=== PATIENT | female | born 2005 | race Caucasian/White ===

== ENCOUNTER 2025-01-18 00:22 | Inpatient (IN) ==
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
--- OUTSIDE RECORDS SUMMARY | 2025-01-18 00:28 | External Medical Summary | Summary of Care ---
Author Name Unknown Organization [facility] Address [address] [place] [address] Phone [phone] Care Team Providers Care Heat Curer Name Role Phone Salazar Keating MD Primary Care Provider + Reason for Visit * Reason Onset Date Comments No Show 11/29/2024 [facility] No Show Auto mation Encounter Details Date Type Department Care Team (Late st Contact Info) Description 11/29/2024 Telephone Family Practice [facility] [address] [place] [address] Salazar Keating MD [address] [place] [id number] No Show ([facility] No Show Automation) Allergies Active Allergy Reactions Criticality Noted Date Comments Cephalexin Hives 01/06/2013 Lamotrigine 06/21/2022 Rash Penicillins 08/03/2018 documented as of this encounter (statuses as of 11/29/2024) Medications traZODone HCl 50 MG Oral Tablet (Desyrel) Take 1 Tablet by mouth at bedtime. 30 Tablet 1 3 Active Propranolol HCl 10 MG Oral Tablet (Inderal) Take 1 Tablet by mouth 3 times a day as needed for Anxiety. 90 Tablet 1 4 Active valACYclovir HCl 500 MG Oral Tablet (Valtrex) 1 tab twice daily for 3 days -start at beginning of herpes outbreak. Stop after 6 pills (extra pills are for future outbreaks) 18 Tablet 4 Active QUEtiapine Fumarate 50 MG Oral Tablet (SEROquel) Take 1 Tablet by mouth at bedtime. 30 Tablet 2 4 Active Drospirenone-Et hinyl Estradiol 3-0.02 MG Oral Tablet (ANGEL)Indication s:PCOS (polycystic ovarian syndrome) Take 1 Tablet by mouth in the morning. 90 Tablet 3 4 Active metFORMIN HCl 500 MG Oral Tablet (Glucophage)Ind ications:PCOS (polycystic ovarian syndrome) Take 1 Tablet by mouth 2 times a day with morning and evening meals. 60 Tablet 1 4 Active documented as of this encounter (statuses as of 11/29/2024) Active Problems Problem Noted Date Diagnosed Date [...] as of this encounter (statuses as of 11/29/2024) Resolved Problems Problem Noted Date Diagnosed Date Resolved Date Food insecurity 02/13/2022 12/20/2023 Overview: Per [facility] Protocol Mood disorder 08/19/2021 07/16/2022 Fracture of ulna, closed 08/17/2008 Lymphadenitis, unspecified, except mesenteric 04/23/20 08 08/19/2021 documented as of this encounter (statuses as of 11/29/2024) Immunizations Name Administration Dates Next Due Covid-19 Ad26, Single Dose (Allison/J&J) 07/13/2021 DTaP Dipth/Tet/Acell Pertussis (Infanrix), Peds 06/04/2008,10/27/2004,2003,08/17,2003 HIB PRP-T, 4 Dose, PF, IM (H iberix, ActHib) 10/27/2004,2003,2003 HPV Vaccine, 9-Valent 06/21/2022 Hepatitis A, Ped/Adol., 18 y ear and below, 2-Dose 04/22/2018,06/03/2013 Hepatitis B, 0-19 yrs 02/23/2009,2003,05/2003 IPV - Polio Virus Vaccine (Inact) 2007,2003,2003,06/15 [...] No 12/04/2023 Does the household have a [facility] source of income? 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 If you haven't already rescheduled, you have a couple of options: Reschedule in [employer]/scheduling Call us at [phone] Can't make a future appointment? Cancel and let someone else have your spot! It's easy to do via [employer] or by calling us. Thanks for trusting [facility] with your care. We hope to see you back in our office soon. Sincerely, SALAZAR DANIEL NANCY documented in this encounter Plan of Treatment Health Maintenance Due Date Last Done Comments [...] (2 - 2023-2 5 season) 2024 07/13/2021 Depression Monitoring 12/04/2024 12/04/2023 Yearly Wellness Visit 12/04/2024 12/04/2023 , 01/27/2020, 04/22/2018, Additional history exists DTap/Tdap Vaccines (7 - Td o r Tdap) 01/25/2026 01/26/2016, 06/04/2008, 10/27/2004, Additional history exists Hepatitis B Vaccine Completed 02/23/2009, 2003, 2003 MENINGOCOCCAL (MENACTRA/MENVEO) Completed , 01/26/2016 documented as of this encounter Medical Devices Not on filedocumented as of this encounter Care Teams Heat Curer Relationship Specialty Start Date End Date Salazar Keating MD [address] [place] [address] PCP - General Family Medicine 08/03/21 documented as of this encounter
--- NOTE | 2025-01-18 01:55 | Emergency Department Note ---
Impression & Plan Breast abscess Admit to the [facility] ED Provider Note NAME: ROSEANNA STARK AGE: 19 SEX: Female INFORMANT: Patient ED PROVIDER(S): Yessy Perez DO CHIEF COMPLAINT: right breast pain and swelling PLAN: Disposition: Admit to the [facility] MEDICAL DECISION MAKING: this is a 19-year-old female patient who presents to the emergency department with a 1 week history of right breast pain and swelling. The patient saw her PCP approximately 4 days ago and was diagnosed with an infection in the right breast. She was started on Bactrim DS but has seen no improvement in her symptoms. In fact, the symptoms are worsening. There is such significant edema that she had to remove her nipple piercing as the jewelry had become embedded into the breast. The pain is now spreading into her neck and back. The patient has an obvious right-sided breast abscess. Blood cultures were obtained and the patient was started on IV vancomycin. Patient's pain was controlled with IV Toradol and IV acetaminophen. She preferred to avoid IV opioids. A septic protocol was performed. Laboratory studies revealed a white blood cell count of 18.5. Procalcitonin and lactate were normal. Urinalysis was unremarkable. Renal function and LFTs were normal. Glucose was normal. Patient went for CT scan of the chest to determine the extent of this abscess. It seems to be contained to the right breast. I discussed the case with the [facility] and he will evaluate for further inpatient care and consult surgery. Care/management discussed with: driver manager and [facility] Triage Nursing notes: reviewed and agree with them. Vital Signs: reviewed and unremarkable Differential Diagnosis: breast abscess, sepsis, cellulitis Diagnostics, independently interpreted by me: Twelve-lead EKG: Normal sinus rhythm at a rate of [address] segment elevation or signs of ischemia. There is no ectopy. QTc was 399 ms. ekg monitor: Normal sinus rhythm at a rate of 94 Imaging studies: CT scan of the chest: As per Imbro HPI: 19 year old Female arrives for evaluation of painful red breast. 1 week history of right breast pain and swelling. The patient saw her PCP approximately 4 days ago and was diagnosed with an infection in the right breast. She was started on Bactrim DS but has seen no improvement in her symptoms. In fact, the symptoms are worsening. There is such significant edema that she had to remove her nipple piercing as the jewelry had become embedded into the breast. PAST MEDICAL HISTORY: none, SOCIAL HISTORY: Patient denied any drug or alcohol use. HOME MEDICATIONS: see list ALLERGIES: See list VITALS: See Below PHYSICAL EXAMINATION: HEENT: Head - normocephalic and atraumatic. Pupils are equal, round, and reactive to light. Extraocular eye muscles are intact, and sclera are anicteric. Nose - moist nasal mucosa without discharge. Mouth - moist buccal mucosa. Oropharynx is nonerythematous and there is no tonsillar exudate or edema noted. Neck: Supple; no Thyromegaly or cervical lymphadenopathy. There was no nuchal rigidity chest wall: The patient has significant enlargement to the right breast with erythema and edema and significant fluctuance. There is obvious abscess formation to the right inferior breast. There is cellulitic changes to the upper portion of the breast. There does not appear to be lymphangitic spread noted. There is no pain in the right axilla. Heart: Regular rate and rhythm. There is a normal S1 and S2 with no murmurs, clicks, or gallops appreciated. Lungs: Clear to auscultation bilaterally with no wheezes, rales, or rhonchi. Abdomen: Soft, completely nontender, nondistended, with good bowel sounds. There are no palpable pulsatile masses or hepatosplenomegaly. There is no guarding, rigidity, or rebound noted. Extremities: No evidence of cyanosis, clubbing, or edema. There are easily palpable peripheral pulses. Skin: warm and dry with good turgor and no rashes. Emergency Department treatment: ekg monitor, IV acetaminophen, IV Toradol, IV Zofran, IV vancomycin Emergency Department course: The patient was evaluated in room C-5. A complete history and physical was performed. A septic protocol was performed. An IV lock was initiated and labs were drawn as above. The patient was medicated with IV Toradol for pain. She was given IV Zofran for nausea. She did not get much relief. She went on to receive IV acetaminophen. This gave her some relief of her discomfort. She was medicated with IV vancomycin for obvious right-sided breast abscess. She went for CT scan of her chest to determine the extent of the abscess. I discussed the case with the [facility] hospitalist who will admit the patient to the hospital and consult surgery. Past Med/Surg History Problem List (Updated 01/19/25 @ 07:23 by Yessy Perez DO) Breast abscess (Acute) Abscess of right breast Obesity Vulvar ulcer History of PCOS Oligomenorrhea Depression with anxiety Wrist contusion (Acute) Medical History Hyperhidrosis Monteggia fracture, closed Concussion Surgical History History of surgery on arm H/O wisdom tooth extraction No pertinent past surgical history Family History Grandmother (Maternal) Ovarian cancer Great Grandmother, in 20s due to either cervical or ovarian Other Cervical cancer No pertinent family history in first degree relatives Denies family history of Colorectal cancer Social History Smoking Status: Current every day smoker Tobacco Type: E-cigarettes / Vaping Cigarettes Per Day: 3 times per day; Second Hand Exposure: Yes; Do You Dip or Chew Tobacco: No; Hx Alcohol Use: No Hx Substance Use: Yes Last Used Substance: Unknown Preferred Language: Ukrainian Communication Ability: Effective Hurricane Tracker Required: No Beliefs That Will Affect Care: None Current Living Situation: Spouse Current Living Situation Comment: Boyfriend Feels Safe at Home: Yes Assistive Devices: None Allergies Allergies Allergy/AdvReac Type Severity Reaction Status Date / Time cephalexin Allergy Unknown Unknown Verified 01/18/25 04:49 Penicillins Allergy Unknown POSSIBLE Verified 01/18/25 04:49 ALLERGY?? lamotrigine [From Lamictal] Allergy Rash Verified 01/18/25 04:49 Home Meds Home Medications Medication Instructions Recorded Confirmed valacyclovir 500 mg tablet 500 mg PO DIRECTED PRN (Drug) 04/09/24 01/18/25 (Valtrex) Ingestion Results & Data (ED) Vital Signs Vital Signs - 24 hr 01/18/25 00:31 01/18/25 01:12 Temperature 36.7 C Temperature Source Oral Pulse Rate 98 H 98 H Respiratory Rate 20 Blood Pressure 133/85 Blood Pressure Mean 101 Pulse Oximetry 100 Oxygen Delivery Method Room Air Sepsis Recent Fever Within 48 Hours No Sepsis New/Unexplained Change in Mental Status No Sepsis Action Taken by Nursing No Action Required Laboratory Data 01/19/25 05:58 01/19/25 05:58 Lab Results 01/18/25 01/18/25 01/18/25 Range/Units 02:02 02:14 02:16 WBC 18.54 H (4.8-10.8) K/ul RBC 4.46 (4.20-5.40) M/uL Hgb 12.9 (12.0-16.0) g/dl POC Hgb 13.3 (12.0-16.0) g/dl Hct 38.8 (37.0-47.0) % POC Hct 39 (37-47) % MCV 87.0 (80.0-100.0) fL MCH 28.9 (25.0-34.0) pg MCHC 33.2 (32.0-36.0) g/dL RDW Std Deviation 37.6 (36.4-46.3) fL RDW Coeff of Obey 11.7 (11.5-14.5) % Plt Count 377 (130-400) K/uL MPV 9.1 L (9.4-12.4) fL Immature Gran % (Auto) 0.4 % Neut % (Auto) 75.1 % Lymph % (Auto) 16.1 % Glascock % (Auto) 8.1 % Eos % (Auto) 0.1 % Baso % (Auto) 0.2 % Neut # (Auto) 13.92 H (1.40-6.50) K/uL Lymph # (Auto) 2.99 (1.20-3.40) K/uL Glascock # (Auto) 1.50 H (0.11-0.59) K/uL Eos # (Auto) 0.01 (0.00-0.50) K/uL Baso # (Auto) 0.04 (0.00-0.20) K/uL Immature Gran # (Auto) 0.08 (0.01-0.20) K/uL POC Sodium 138 (135-144) mmol/L Sodium 139 (136-145) mmol/L POC Potassium 3.9 (3.3-5.0) mmol/L Potassium 3.9 (3.5-5.1) mmol/L POC Chloride 100 L (101-112) mmol/L Chloride 102 (98-107) mmol/L Carbon Dioxide 31 (21-32) mmol/L POC Total CO2 27 (24-31) mmol/L Anion Gap 6 (3-11) POC Anion Gap 17.0 (16-25) mmol/L POC BUN 10 (7-18) mg/dl BUN 11 (6-23) mg/dl Creatinine 0.80 (0.6-1.2) mg/dl POC Creatinine 0.9 (0.6-1.3) mg/dl Est Cr Clr Drug Dosing 100.1 ml/min eGFR 107.44 BUN/Creatinine Ratio 13.8 (10-20) Glucose 87 (70-99(Fasting)) mg/dl POC Glucose (other) 87 (70-99) mg/dl Lactate 1.3 (0.4-2.0) mmol/L Calcium 9.8 (8.6-10.3) mg/dl POC Ioniz Calcium Jose 1.24 (1.12-1.32) mmol/l Magnesium 2.0 (1.7-2.4) mg/dl Total Bilirubin 0.3 (0.2-1.0) mg/dl Direct Bilirubin 0.1 (0-0.2) mg/dl AST 16 (13-39) U/L ALT 20 (7-52) U/L Alkaline Phosphatase 96 (34-104) U/L Troponin I High Sens < 2.3 (0-14) pg/ml Total Protein 7.5 (6.0-8.3) gm/dl Albumin 4.1 (3.4-5.0) gm/dl Procalcitonin < 0.02 (0-0.5) ng/ml Urine Color Yellow Urine Appearance Cloudy A (Clear) Urine pH 7.5 (4.5-7.5) Ur Specific Robbins 1.016 (1.000-1.030) Urine Protein Negative (Negative) Urine Glucose (UA) Negative (Negative) Urine Ketones Negative (Negative) Urine Blood Negative (Negative) Urine Nitrite Negative (Negative) Urine Bilirubin Negative (Negative) Urine Urobilinogen Negative (Negative) Ur Leukocyte Esterase Negative (Negative) Urine WBC (Auto) 0-5 (0-5) /hpf Urine RBC (Auto) 0-2 (0-2) /hpf U Hyaline Cast (Auto) 0-2 (0-2) /lpf U Epithel Cells (Auto) 0-2 (0-2) /hpf Urine Bacteria (Auto) None Seen (None Seen) Urine Test Negative (Negative) Administered Medications Acetaminophen (Acetaminophen 325 Mg Tab) 650 mg PO Q4H PRN PRN Reason: Mild Pain (Scale 1, 2, 3) Stop: 02/17/25 17:05 Last Admin: 01/19/25 03:01 Dose: 650 mg Documented By: Admin: 01/18/25 22:20 Dose: 650 mg Documented By: Admin: 01/18/25 18:35 Dose: 650 mg Documented By: ANDREA Ertapenem (Invanz 1000mg) 1,000 mg in 10 mls @ 2 mls/min IV Q24H BETHANY Stop: 01/25/25 05:59 Last Admin: 01/19/25 06:19 Dose: 2 mls/min Documented By: Admin: 01/18/25 06:35 Dose: 2 mls/min Documented By: FOX Vancomycin HCl (Vancomycin Hcl) 1,000 mg in 270 mls @ 200 mls/hr IV Q8H BETHANY Stop: 01/25/25 10:59 Last Infusion: 01/19/25 04:42 Dose: Infused Documented By: Admin: 01/19/25 02:58 Dose: 200 mls/hr Documented By: Infusion: 01/18/25 20:02 Dose: Infused Documented By: Admin: 01/18/25 18:31 Dose: 200 mls/hr Documented By: Infusion: 01/18/25 12:30 Dose: Infused Documented By: Admin: 01/18/25 10:50 Dose: 200 mls/hr Documented By: DMITRI Ketorolac Tromethamine (Ketorolac Tromethamine 15 Mg/Ml Vial) 15 mg IV Q6H PRN PRN Reason: Pain Stop: 01/23/25 06:52 Last Admin: 01/18/25 22:20 Dose: 15 mg Documented By: Admin: 01/18/25 10:12 Dose: 15 mg Documented By: DMITRI Discontinued Medications Fentanyl Citrate (Fentanyl Citrate Pf 100 Mcg/2 Ml Vial) 25 mcg IV Q5M PRN PRN Reason: PACU Use Only-Pain Stop: 01/18/25 19:28 Last Admin: 01/18/25 16:18 Dose: 25 mcg Documented By: Admin: 01/18/25 16:13 Dose: 25 mcg Documented By: SERENA Acetaminophen (Ofirmev) 1,000 mg in 100 mls @ 400 mls/hr IV NOW STA Stop: 01/18/25 04:07 Last Infusion: 01/18/25 04:47 Dose: Infused Documented By: Admin: 01/18/25 04:24 Dose: 400 mls/hr Documented By: FOX Vancomycin HCl 1,250 mg/ (Sodium Chloride) 525 mls @ 200 mls/hr IV NOW ONE Stop: 01/18/25 06:31 Last Infusion: 01/18/25 08:00 Dose: Infused Documented By: Admin: 01/18/25 05:15 Dose: 200 mls/hr Documented By: FOX Sodium Chloride (Nss) 1,000 mls @ 125 mls/hr IV .Q8H BETHANY Stop: 01/19/25 06:52 Last Admin: 01/19/25 00:59 Dose: 125 mls/hr Documented By: Infusion: 01/19/25 00:59 Dose: Infused Documented By: Admin: 01/18/25 17:17 Dose: 125 mls/hr Documented By: Infusion: 01/18/25 15:15 Dose: Infused Documented By: Admin: 01/18/25 07:15 Dose: 125 mls/hr Documented By: DMITRI Ioversol (Optiray 320 100ml) 93 ml IV ONCE ONE Stop: 01/18/25 02:56 Last Admin: 01/18/25 02:56 Dose: 93 ml Documented By: CHEYANNE Ketorolac Tromethamine (Ketorolac Tromethamine 15 Mg/Ml Vial) 15 mg IV NOW STA Stop: 01/18/25 01:50 Last Admin: 01/18/25 02:12 Dose: 15 mg Documented By: REMBERTO Lidocaine/Epinephrine (Lidocaine 1%/Epinephrine 1:100,000 50 Ml Vial) Confirm Administered Dose 1 ml .ROUTE .STK-MED ONE Stop: 01/18/25 14:41 Last Admin: 01/18/25 17:06 Dose: Not Given Documented By: ANDREA Ondansetron HCl (Ondansetron Inj 2 Mg/Ml 2 Ml Vial) 4 mg IV NOW STA Stop: 01/18/25 01:50 Last Admin: 01/18/25 02:11 Dose: 4 mg Documented By: LAF Discharge Plan Visit Data Chief Complaint: Breast Pain/Problems Stated Complaint: INFECTION IIN RT BREAST ED Provider: Yessy Perez Discharge Problem: Breast abscess Discharge Instructions Interventions: ED Discharge Assessment Last Done: 01/18/25 06:54
[2025-01-18] MEDS: ONDANSETRON INJ 2 MG/ML 2 ML VIAL IV STA (02:11)
[2025-01-18] MEDS: KETOROLAC TROMETHAMINE 15 MG/ML VIAL IV STA (02:12)
[2025-01-18 02:28] LABS: Basophils # (auto) 0.04 K/uL (0.00-0.20); Basophils % (auto) 0.2 %; Eosinophils # (auto) 0.01 K/uL (0.00-0.50); Eosinophils % (auto) 0.1 %; Hematocrit (blood only) 38.8 % (37.0-47.0); Hemoglobin 12.9 g/dl (12.0-16.0); Immature Granulocytes # (auto) 0.08 K/uL (0.01-0.20); Immature Granulocytes % (auto) 0.4 %; Lymphocytes # (auto) 2.99 K/uL (1.20-3.40); Lymphocytes % (auto) 16.1 %; Mean Corpuscular Hemoglobin 28.9 pg (25.0-34.0); Mean Corpuscular Hgb Conc 33.2 g/dL (32.0-36.0); Mean Platelet Volume 9.1 fL (9.4-12.4); Monocytes % (auto) 8.1 %; Neutrophils # (auto) 13.92 K/uL (1.40-6.50); Neutrophils % (auto) 75.1 %; Platelet Count 377 K/uL (130-400); RDW Coefficient of Variation 11.7 % (11.5-14.5); RDW Standard Deviation 37.6 fL (36.4-46.3); Red Blood Count 4.46 M/uL (4.20-5.40); White Blood Count 18.54 K/ul (4.8-10.8)
[2025-01-18 02:40] LABS: Alanine Aminotransferase 20 U/L (7-52); Albumin Level 4.1 gm/dl (3.4-5.0); Alkaline Phosphatase 96 U/L (34-104); Anion Gap 6 (3-11); Aspartate Aminotransferase 16 U/L (13-39); BUN Creatinine Ratio 13.8 (10-20); Bilirubin Direct 0.1 mg/dl (0-0.2); Bilirubin,Total 0.3 mg/dl (0.2-1.0); Blood Urea Nitrogen 11 mg/dl (6-23); Calcium 9.8 mg/dl (8.6-10.3); Carbon Dioxide 31 mmol/L (21-32); Chloride 102 mmol/L (98-107); Creatinine Clr Calc Pharmacy 100.1 ml/min; Glucose 87 mg/dl (70-99(Fasting)); Potassium 3.9 mmol/L (3.5-5.1); Sodium 139 mmol/L (136-145); Total Protein 7.5 gm/dl (6.0-8.3)
[2025-01-18 02:46] LABS: Appearance Urine Cloudy (Clear); Bacteria Urine Automated None Seen (None Seen); Bilirubin Urine Negative (Negative); Blood Urine Negative (Negative); Cast Urine Automated 0-2 /lpf (0-2); Color Urine Yellow; Epithelial Cell Urine Auto 0-2 /hpf (0-2); Glucose Urine UA Negative (Negative); Ketones Urine Negative (Negative); Leukocyte Esterase Urine Negative (Negative); Nitrite Urine Negative (Negative); Protein Urine Negative (Negative); RBC Urine Automated 0-2 /hpf (0-2); Specific Gravity Urine 1.016 (1.000-1.030); Urobilinogen Urine Negative (Negative); WBC Urine Automated 0-5 /hpf (0-5); pH Urine 7.5 (4.5-7.5)
[2025-01-18 02:46] LABS: Troponin I High Sensitivity < 2.3 pg/ml (0-14)
[2025-01-18 02:56] LABS: iSTAT Creatinine 0.9 mg/dl (0.6-1.3); iSTAT Hemoglobin 13.3 g/dl (12.0-16.0); iSTAT Ionized Calcium 1.24 mmol/l (1.12-1.32); iSTAT Potassium 3.9 mmol/L (3.3-5.0)
[2025-01-18] MEDS: OPTIRAY 320 100ml IV ONE (02:56)
[2025-01-18] MEDS ORDERED: VANCOMYCIN CONSULT ACTIVE PRN (03:54)
--- NOTE | 2025-01-18 04:00 | CT Scan Report ---
EXAM: CT chest diagnostic w con CLINICAL HISTORY: right breast abscess TECHNIQUE: Contiguous axial images were obtained from the neck base through the upper abdomen following intravenous administration of contrast material. If IV contrast material had not been administered, the likelihood of detecting abnormalities relevant to the patient's condition would have been substantially decreased. In addition, sagittal and coronal reconstructions were performed. CT scan was performed according to ALARA (as low as reasonably achievable). COMPARISON: None. FINDINGS: A well defined fluid density collection with irregular enhancing margins seen in retroareolar region and upper and lower inner quadrants of right breast parenchyma ; possibility of right breast abscess likely. It measures 80 x 64 x 62 mm in size (AP x TR x CC). Few enlarged homogeneously enhancing right axillary lymph nodes noted. The largest lymph node measures 21 x 13 mm in size. Few subcentimeter sized homogeneously enhancing reactive lymph nodes seen in left axilla. Focal areas of air trapping seen in right lower lobe. Rest of the lungs are clear, with no focal areas of consolidation. The central airways are patent. There are no pleural effusions. No pneumothorax is seen. No significant hilar or mediastinal adenopathy is identified. The visualized thyroid is unremarkable. The heart, aorta, and pulmonary arteries are of normal size and configuration. No pericardial effusion is identified. Imaged portions of the upper abdomen are unremarkable. No aggressive appearing osseous lesions are identified. IMPRESSION: 1. Well defined fluid density collection with irregular enhancing margins in retroareolar region and upper, lower inner quadrants of right breast parenchyma; possibility of right breast abscess likely. Suggested clinicopathological correlation. 2. Few enlarged right axillary lymph nodes. 3. Reactive lymph nodes in left axilla. 4. Focal areas of air trapping in right lower lobe. Electronically signed by Elieser Mg 01-18-2025 03:59 AM
[2025-01-18] MEDS: ACETAMINOPHEN 1,000 MG/100 ML VIAL IV STA (04:24)
[2025-01-18] MEDS: VANCOMYCIN HCL 1,250 MG in SODIUM CHLORIDE 0.9% 500 ML IV ONE (05:15)
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
[2025-01-18] MEDS: ERTAPENEM 1000MG 1,000 MG/10 ML SYR IV SCH (06:35)
[2025-01-18] MEDS ORDERED: ACETAMINOPHEN 1,000 MG/100 ML VIAL IV PRN (06:53)
[2025-01-18] MEDS: SODIUM CHLORIDE 0.9% 1,000 ML IV SCH (07:15)
--- NOTE | 2025-01-18 09:16 | Pharmacy Report ---
Pharmacy PK ABX Note - Date of Service January 18, 2025 - Assessment and Plan Assessment 19 year old F receiving vancomycin and ertapenem for treatment of right breast abscess. Blood cultures pending, renal function stable. Failed outpatient Bactrim. Day # 1 of antimicrobial therapy. Plan Vancomycin * Loading dose: 1250 mg IV x 1 * Maintenance dose: 1000 mg IV every 8 hours * Regimen is predicted to achieve target AUC/CEASAR slightly above 600mg/L.hr however given age and history, likely will clear/require more frequent dosing interval. Will obtain an early level to adjust * Trough level ordered for: 4/14 AM Pharmacy will continue to follow and will adjust dose/frequency as necessary. Thank you. Pharmacy has transitioned to AUC monitoring for vancomycin. AUC/CEASAR is the preferred PK/PD target and is associated with decreased risk of nephrotoxicity compared to traditional trough targets.
--- NOTE | 2025-01-18 09:40 | Electrocardiogram Report ---
Test Reason : Blood Pressure : */* mmHG Vent. Rate : 95 BPM Atrial Rate : 95 BPM P-R Int : 136 ms QRS Dur : 86 ms QT Int : 318 ms P-R-T Axes : 50 71 37 degrees QTcB Int : 399 ms Normal sinus rhythm Nonspecific T wave abnormality Abnormal ECG When compared with ECG of 18-Nov-2023 00:44, No significant change was found Confirmed by Oleg Severino ([id number]) on 01/18/2025 9:40:17 AM Referred By: REFERRED SELF Confirmed By: Oleg Severino
--- NOTE | 2025-01-18 09:50 | Surgery Consultation ---
<Statement entered by Lorin Andrea DO - 01/18/25 12:47> I have seen and examined this patient with the surgical PA and I agree with this plan. Date of Consultation January 18, 2025 Assessment & Plan (1) Abscess of right breast: This is a 19yF with a PMH of depression/anxiety, PCOS, h/o drug abuse who presents to the [facility] on 01/18/25 with complaints of right sided breast pain. She reports it started out as a lump about 1 week ago, then as it worsened she saw her PCP who prescribed her bactrim about 4 days ago. Unfortunately it has continued to worsen despite being on antibiotics in terms of expanding redness and pain. She had a nipple piercing that she did remove a few days back. She noticed a very small amount of drainage consistent with removal of the piercing but nothing since. In the ER she underwent a chest CT which revealed a well defined fluid density collection with irregular enhancing margins in retroareolar region and upper, lower inner quadrants of right breast parenchyma; possibility of right breast abscess likely. This measures 80 x 64 x 62 mm in size (AP x TR x CC). The patient is not breast feeding. She denies history of breast abscess or other bodily abscess in the past. In the ER labs show WBC 18, Hbg 12.9, Cr 0.8. Vitals are stable. On exam of the right breast there is a large amount of erythema circumferentially around the R nipple areola complex extending from the nipple areola complex superiorly and extends beyond it inferiorly. There is tenderness associated with this including + fluctuance in the inferior/medial portions of her areola, no active drainage. Given the size of the abscess and appearance of it being superficial we will recommend I&D of this. We will recommend performing this in the OR. Keep NPO and on IV abx. The hospitalists have admitted the patient to their service History of Present Illness Attending Physician: Madison Gallagher MD History of Present Illness This is a 19yF with a PMH of depression/anxiety, PCOS, h/o drug abuse who presents to the [facility] on 01/18/25 with complaints of right sided breast pain. She reports it started out as a lump about 1 week ago, then as it worsened she saw her PCP who prescribed her bactrim about 4 days ago. Unfortunately it has continued to worsen despite being on antibiotics in terms of expanding redness and pain. She had a nipple piercing that she did remove a few days back. She noticed a very small amount of drainage consistent with removal of the piercing but nothing since. In the ER she underwent a chest CT which revealed a well defined fluid density collection with irregular enhancing margins in retroareolar region and upper, lower inner quadrants of right breast parenchyma; possibility of right breast abscess likely. This measures 80 x 64 x 62 mm in size (AP x TR x CC). The patient is not breast feeding. She denies history of breast abscess or other bodily abscess in the past. Allergies Allergy/AdvReac Type Severity Reaction Status Date / Time cephalexin Allergy Unknown Unknown Verified 01/18/25 04:49 Penicillins Allergy Unknown POSSIBLE Verified 01/18/25 04:49 ALLERGY?? lamotrigine [From Lamictal] Allergy Rash Verified 01/18/25 04:49 Home Medications Medication Instructions Recorded Confirmed Type valacyclovir 500 mg tablet 500 mg PO DIRECTED PRN (Drug) 04/09/24 01/18/25 History (Valtrex) Ingestion Patient History Medical History Hyperhidrosis Monteggia fracture, closed Concussion Surgical History History of surgery on arm H/O wisdom tooth extraction No pertinent past surgical history Family History Grandmother (Maternal) Ovarian cancer Great Grandmother, in 20s due to either cervical or ovarian Other Cervical cancer No pertinent family history in first degree relatives Denies family history of Colorectal cancer Social History Smoking Status: Current every day smoker Tobacco Type: E-cigarettes / Vaping Cigarettes Per Day: 3 times per day; Second Hand Exposure: Yes; Do You Dip or Chew Tobacco: No; Hx Alcohol Use: No Hx Substance Use: Yes Last Used Substance: Unknown Preferred Language: Austrian Communication Ability: Effective Caddymaster Required: No Beliefs That Will Affect Care: None Current Living Situation: Spouse Current Living Situation Comment: Boyfriend Feels Safe at Home: Yes Safety Concerns: Feels Safe At This Time Assistive Devices: None Review of Systems Constitutional: + chills; no fever Cardiovascular: no chest pain Gastrointestinal: no abdominal pain Integumentary: R breast redness and pain Physical Exam Physical Exam: awake/alert, no distress Constitutional: well developed and well nourished Respiratory: normal respiratory effort Chest (Breasts): Additional Comments: Right breast erythema circumferential around R nipple areola complex extending from NAC superiorly and extends beyond it inferiorly. there is tenderness associated with this including + fluctuance in the inferior/medial portions of her areola, no active drainage Results & Data Vital Signs (Past 12 Hours) Vital Signs Temp Pulse Pulse Pulse Resp BP BP 01/18/25 09:00 73 18 120/75 01/18/25 08:00 82 19 110/64 01/18/25 07:42 71 16 01/18/25 07:30 65 17 124/75 01/18/25 07:15 70 18 115/69 01/18/25 07:04 79 01/18/25 06:45 82 19 118/80 01/18/25 06:30 70 18 121/80 01/18/25 06:15 65 16 141/72 H 01/18/25 05:45 73 13 100/61 01/18/25 05:30 80 24 111/68 01/18/25 05:08 81 01/18/25 04:53 97.9 F 88 20 120/72 01/18/25 04:45 82 16 120/72 01/18/25 04:30 85 13 127/76 01/18/25 04:00 89 21 118/79 01/18/25 03:00 97.9 F 93 H 21 133/93 01/18/25 02:45 97.9 F 90 20 109/72 01/18/25 02:30 97.9 F 91 H 20 122/70 01/18/25 02:15 97.9 F 92 H 23 120/70 01/18/25 02:00 97.9 F 94 H 16 120/72 01/18/25 02:00 87 18 01/18/25 01:30 97.9 F 91 H 91 H 20 122/78 01/18/25 01:12 98 H 01/18/25 01:00 97.9 F 94 H 18 123/80 01/18/25 00:31 98.1 F 98 H 20 133/85 Pulse Ox O2 Del Method 01/18/25 09:00 97 01/18/25 08:00 96 01/18/25 07:42 97 01/18/25 07:30 01/18/25 07:15 97 Room Air 01/18/25 07:04 01/18/25 06:45 95 Room Air 01/18/25 06:30 98 Room Air 01/18/25 06:15 96 Room Air 01/18/25 05:45 94 Room Air 01/18/25 05:30 98 Room Air 01/18/25 05:08 01/18/25 04:53 96 Room Air 01/18/25 04:45 95 Room Air 01/18/25 04:30 97 Room Air 01/18/25 04:00 100 Room Air 01/18/25 03:00 100 Room Air 01/18/25 02:45 100 Room Air 01/18/25 02:30 100 Room Air 01/18/25 02:15 100 Room Air 01/18/25 02:00 100 Room Air 01/18/25 02:00 100 Room Air 01/18/25 01:30 100 Room Air 01/18/25 01:12 01/18/25 01:00 100 Room Air 01/18/25 00:31 100 Room Air Diagnostic Findings ADDENDUM Addendum Report EXAM: CT chest diagnostic w con ADDENDUM: The results were sent successfully via fax at [phone] at 3:08 AM GENERAL PASSENGER AGENT, 01/18/2025. Electronically signed by Elieser Mg 01-18-2025 04:37 AM ADDENDUM END ADDENDUM Addendum Report EXAM: CT chest diagnostic w con ADDENDUM: The results were sent successfully via fax at [phone] at 3:08 AM GENERAL PASSENGER AGENT, 01/18/2025. Electronically signed by Elieser Mg 01-18-2025 04:37 AM ADDENDUM END EXAM: CT chest diagnostic w con CLINICAL HISTORY: right breast abscess TECHNIQUE: Contiguous axial images were obtained from the neck base through the upper abdomen following intravenous administration of contrast material. If IV contrast material had not been administered, the likelihood of detecting abnormalities relevant to the patient's condition would have been substantially decreased. In addition, sagittal and coronal reconstructions were performed. CT scan was performed according to ALARA (as low as reasonably achievable). COMPARISON: None. FINDINGS: A well defined fluid density collection with irregular enhancing margins seen in retroareolar region and upper and lower inner quadrants of right breast parenchyma ; possibility of right breast abscess likely. It measures 80 x 64 x 62 mm in size (AP x TR x CC). Few enlarged homogeneously enhancing right axillary lymph nodes noted. The largest lymph node measures 21 x 13 mm in size. Few subcentimeter sized homogeneously enhancing reactive lymph nodes seen in left axilla. Focal areas of air trapping seen in right lower lobe. Rest of the lungs are clear, with no focal areas of consolidation. The central airways are patent. There are no pleural effusions. No pneumothorax is seen. No significant hilar or mediastinal adenopathy is identified. The visualized thyroid is unremarkable. The heart, aorta, and pulmonary arteries are of normal size and configuration. No pericardial effusion is identified. Imaged portions of the upper abdomen are unremarkable. No aggressive appearing osseous lesions are identified. IMPRESSION: 1. Well defined fluid density collection with irregular enhancing margins in retroareolar region and upper, lower inner quadrants of right breast parenchyma; possibility of right breast abscess likely. Suggested clinicopathological correlation. 2. Few enlarged right axillary lymph nodes. 3. Reactive lymph nodes in left axilla. 4. Focal areas of air trapping in right lower lobe. Electronically signed by Elieser Mg 01-18-2025 03:59 AM PG Care Time/CCT Total # of Minutes Spent Total Time Spent with Patient: Total time spent is greater than 50% in coordination of care (as documented) at patient's floor/unit and/or counseling patient: Coding Level of Care Code 69647 IN/OBS CONSULT LVL 3,45M Diagnoses Abscess of right breast N61.1
[2025-01-18] MEDS: KETOROLAC TROMETHAMINE 15 MG/ML VIAL IV PRN (10:12)
[2025-01-18] MEDS: VANCOMYCIN HCL 1,000 MG/270 ML BAG IV SCH (10:50)
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
[2025-01-18] MEDS ORDERED: ONDANSETRON INJ 2 MG/ML 2 ML VIAL IV PRN (11:28)
[2025-01-18] MEDS ORDERED: PROMETHAZINE HCL 6.25 MG in SODIUM CHLORIDE 0.9% 50 ML IV PRN (11:28)
[2025-01-18] MEDS ORDERED: ATROPINE SULFATE 0.1 MG/ML 10ML SYR IV PRN (11:28)
[2025-01-18] MEDS ORDERED: FLUMAZENIL 0.1 MG/1 ML 10 ML VIAL IV PRN (11:28)
[2025-01-18] MEDS ORDERED: NALOXONE HCL 0.4 MG/1 ML VIAL/CARP IV PRN (11:28)
[2025-01-18] MEDS ORDERED: ePHEDrine sulfate 50 MG/ML AMP IV PRN (11:28)
[2025-01-18 11:44] LABS: Pregnancy Test, Urine Negative (Negative)
--- NOTE | 2025-01-18 13:44 | Communication Note ---
Date of Service: January 18, 2025 The patient was seen and examined in the emergency room. She is admitted with right breast abscess and awaiting I&D. She has minimal pain but no other sym ptoms and remains hemodynamically stable. Appreciate surgery input and recommendation. Full progress note will be done tomorrow. Dr Rosalba Gallagher
[2025-01-18] MEDS ORDERED: PROPOFOL IV EMULSION 10 MG/ML 20 ML VIAL IV ONE (14:35)
[2025-01-18] MEDS ORDERED: fentaNYL citrate PF 100 MCG/2 ML VIAL ONE (14:35)
[2025-01-18] MEDS ORDERED: ONDANSETRON INJ 2 MG/ML 2 ML VIAL ONE (14:35)
[2025-01-18] MEDS ORDERED: LIDOCAINE 2% 2 ML VIAL/AMP(20MG/ML) INFIL ONE (14:35)
[2025-01-18] MEDS ORDERED: MIDAZOLAM HCL 1 MG/ML 2ML VIAL ONE (14:35)
--- NOTE | 2025-01-18 14:52 | Communication Note ---
Date of Service: January 18, 2025 Pt states she used an opioid pill approx. 1 - 2 weeks ago and crystal meth 2 weeks ago. she also states she smoked marijuana 2 days ago.
[2025-01-18] MEDS ORDERED: KETAMINE HCL 10MG/ML SYR ONE (15:18)
--- NOTE | 2025-01-18 15:48 | Operative Report ---
[facility] Post Operative Report Pre & Post Diagnosis Operation Date: 01/18/25 13:00 Pre-Op Diagnosis: Right Breast Abscess Post-Op Diagnosis: Right Breast Abscess I identified the patient and participated in the time-out.: Yes Procedure Operation Date: 01/18/25 13:00 Actual Procedures p Incision and Drainage Right Breast Abscess(Right) - Lorin Andrea DO Surgeon Lorin Andrea DO Circular Knife Cutter Machine REGINO Gates Estimated Blood Loss 7 Findings See Below copious amount of thick, purulent fluid within the inferior and medial aspect of the right breast. Cultures were taken Specimens None Anesthesia Type General Complications None Indications Large fluid collection involving the right breast seen on CT Chest causing pain, swelling and diffuse erythema of close to the entire right breast Description of Procedure The patient was brought back to the operating room and placed on the operating room table in supine position. She was connected to cardiac and oxygen monitoring, supplemental O2 was provided and SCDs were applied to bilateral lower extremities. The patient was administered general anesthesia and a secure airway was established. The right breast was prepped and draped in typical sterile fashion using Betadine. And a timeout was conducted. A large area of fluctuance was notable over the inferior aspect of the right breast periareolar region and beyond. The area of fluctuance was noted from the 2 o'clock position to the 6 o'clock position. Local anesthetic was used anesthetize the skin over this area and a roughly 2-1/2 to 3 cm incision was made along the inferior aspect of the right breast. Copious amounts of thick purulent fluid spontaneously expelled from the wound and cultures were taken. The area was cleared of purulent fluid and curetted copiously with saline and dried. Bleeding was controlled using cautery. The area was packed with 1 inch plain packing. Additional local anesthetic was injected into the skin and subcutaneous tissues. The area was covered with dry gauze and an ABD secured in place with Medipore tape. The patient tolerated the procedure well. She was awakened from anesthesia, the secure airway was removed and she was transferred to recovery in stable condition. I attest to the content of the Intraoperative Record and any orders documented therein. Any exceptions are noted below.
[2025-01-18] MEDS: fentaNYL citrate PF 100 MCG/2 ML VIAL IV PRN (16:13)
[2025-01-18] MEDS ORDERED: MoRPHine SULFATE 4 MG/ML 1 ML CARP\\VIAL IV PRN (17:06)
[2025-01-18] MEDS: LIDOCAINE 1%/EPINEPHRINE 1:100,000 50 ML VIAL ONE (17:06)
[2025-01-18] MEDS ORDERED: oxyCODONE HCL IR 5 MG TAB (IMMEDIATE RELEASE) PO PRN (17:06)
--- NOTE | 2025-01-18 17:13 | Anesthesiology Progress Note ---
Date of Service January 18, 2025 Anesthesia Post Procedure Vital Signs Vital Signs: Temp Pulse Pulse Pulse Pulse Resp BP 01/18/25 16:50 36.6 C 86 16 01/18/25 16:40 77 20 01/18/25 16:30 36.6 C 90 18 01/18/25 16:20 87 18 01/18/25 16:10 92 H 22 01/18/25 16:00 108 H 23 01/18/25 15:50 36 C L 90 17 01/18/25 14:30 119/78 01/18/25 14:00 105/66 01/18/25 13:48 100 H 20 01/18/25 13:30 112/83 01/18/25 13:24 66 16 01/18/25 13:00 113/72 01/18/25 12:09 66 20 01/18/25 12:00 54 L 16 108/71 01/18/25 11:51 60 19 01/18/25 11:30 111/77 01/18/25 11:03 61 19 01/18/25 11:00 110/64 01/18/25 10:00 100 H 15 103/63 01/18/25 09:30 64 19 01/18/25 09:00 73 18 120/75 01/18/25 08:00 82 19 110/64 01/18/25 07:42 71 16 01/18/25 07:30 65 17 124/75 01/18/25 07:15 70 18 01/18/25 07:04 79 01/18/25 06:45 82 19 118/80 01/18/25 06:30 70 18 121/80 01/18/25 06:15 65 16 141/72 H 01/18/25 05:45 73 13 100/61 01/18/25 05:30 80 24 111/68 01/18/25 05:08 81 01/18/25 04:53 36.6 C 88 20 01/18/25 04:45 82 16 120/72 01/18/25 04:30 85 13 127/76 01/18/25 04:00 89 21 118/79 01/18/25 03:00 36.6 C 93 H 21 01/18/25 02:45 36.6 C 90 20 01/18/25 02:30 36.6 C 91 H 20 01/18/25 02:15 36.6 C 92 H 23 01/18/25 02:00 36.6 C 94 H 16 01/18/25 02:00 87 18 01/18/25 01:30 36.6 C 91 H 91 H 20 01/18/25 01:12 98 H 01/18/25 01:00 36.6 C 94 H 18 01/18/25 00:31 36.7 C 98 H 20 133/85 BP Pulse Ox O2 Del Method O2 Flow Rate 01/18/25 16:50 129/84 95 Room Air 01/18/25 16:40 124/82 97 Room Air 01/18/25 16:30 123/83 94 Room Air 01/18/25 16:20 121/87 98 Room Air 01/18/25 16:10 130/80 98 Oxymask 5 01/18/25 16:00 116/83 100 Oxymask 10 01/18/25 15:50 105/54 L 93 Oxymask 10 01/18/25 14:30 01/18/25 14:00 01/18/25 13:48 99 01/18/25 13:30 01/18/25 13:24 98 01/18/25 13:00 01/18/25 12:09 99 01/18/25 12:00 100 01/18/25 11:51 99 01/18/25 11:30 01/18/25 11:03 96 01/18/25 11:00 01/18/25 10:00 99 01/18/25 09:30 97 01/18/25 09:00 97 01/18/25 08:00 96 01/18/25 07:42 97 01/18/25 07:30 01/18/25 07:15 115/69 97 Room Air 01/18/25 07:04 01/18/25 06:45 95 Room Air 01/18/25 06:30 98 Room Air 01/18/25 06:15 96 Room Air 01/18/25 05:45 94 Room Air 01/18/25 05:30 98 Room Air 01/18/25 05:08 01/18/25 04:53 120/72 96 Room Air 01/18/25 04:45 95 Room Air 01/18/25 04:30 97 Room Air 01/18/25 04:00 100 Room Air 01/18/25 03:00 133/93 100 Room Air 01/18/25 02:45 109/72 100 Room Air 01/18/25 02:30 122/70 100 Room Air 01/18/25 02:15 120/70 100 Room Air 01/18/25 02:00 120/72 100 Room Air 01/18/25 02:00 100 Room Air 01/18/25 01:30 122/78 100 Room Air 01/18/25 01:12 01/18/25 01:00 123/80 100 Room Air 01/18/25 00:31 100 Room Air Pain Intensity Right Breast: Pain Intensity: 4 Transfer of Care Handoff Completed per policy Notes Mental Status: alert / awake / arousable Patient Amnestic to Procedure: Yes Nausea / Vomiting: adequately controlled Pain: adequately controlled Airway Patency, RR, SpO2: stable & adequate BP & HR: stable & adequate Hydration State: stable & adequate Anesthetic Complications: no major complications apparent
[2025-01-18] MEDS: ACETAMINOPHEN 325 MG TAB PO PRN (18:35)
[2025-01-19 06:24] LABS: Hematocrit (blood only) 34.7 % (37.0-47.0); Hemoglobin 11.7 g/dl (12.0-16.0); Mean Corpuscular Hemoglobin 29.1 pg (25.0-34.0); Mean Corpuscular Hgb Conc 33.7 g/dL (32.0-36.0); Mean Corpuscular Volume 86.3 fL (80.0-100.0); Platelet Count 329 K/uL (130-400); RDW Coefficient of Variation 11.6 % (11.5-14.5); RDW Standard Deviation 36.5 fL (36.4-46.3); Red Blood Count 4.02 M/uL (4.20-5.40); White Blood Count 19.25 K/ul (4.8-10.8)
[2025-01-19 06:36] LABS: Albumin Globulin Ratio 1.2 (0.9-2); Albumin Level 3.6 gm/dl (3.4-5.0); BUN Creatinine Ratio 12.9 (10-20); Bilirubin,Total 0.3 mg/dl (0.2-1.0); Creatinine Clr Calc Pharmacy 114.4 ml/min; Magnesium 1.9 mg/dl (1.7-2.4); Potassium 4.3 mmol/L (3.5-5.1); Total Protein 6.6 gm/dl (6.0-8.3)
[2025-01-19 06:45] LABS: Basophils # (auto) 0.02 K/uL (0.00-0.20); Basophils % (auto) 0.1 %; Echinocytes 1+; Immature Granulocytes # (auto) 0.12 K/uL (0.01-0.20); Immature Granulocytes % (auto) 0.6 %; Lymphocytes # (auto) 1.01 K/uL (1.20-3.40); Lymphocytes % (auto) 5.2 %; Monocytes # (auto) 0.63 K/uL (0.11-0.59); Monocytes % (auto) 3.3 %; Neutrophils # (auto) 17.47 K/uL (1.40-6.50); Neutrophils % (auto) 90.8 %
--- NOTE | 2025-01-19 10:16 | Surgery Progress Note ---
<Statement entered by Lorin Andrea, DO - 01/19/25 13:27> I have seen this patient this am. She was very sleepy but arousable. Will leave the sterile surgical dressings in place today and plan for a packing change tomorrow. Date of Service January 19, 2025 Assessment & Plan (1) Abscess of right breast: Plan: POD#1 incision and drainage of R breast abscess WBC 19. vitals stable, she is afebrile Will leave surgical dressing/packing in place for today and re-evaluate again tomorrow Culture data is pending, continue on IV abx for today Pt seen/examined with Dr. Andrea Admission and Anticipated Discharge Date Admission Date: January 18, 2025 Subjective Patient tired, but otherwise no major complaints noted. Physical Exam Physical Exam: sleepy, but easily arousable and communicative Chest (Breasts): Additional Comments: R breast surgical dressing c/d/i Results & Data Vital Signs (Past 12 Hours) Vital Signs Temp Pulse Resp BP Pulse Ox O2 Del Method 01/19/25 07:16 97.9 F 69 20 118/78 95 Room Air 01/19/25 04:13 97.9 F 81 18 104/64 99 Room Air 01/18/25 23:49 97.7 F 74 18 121/72 100 Room Air PG Care Time/CCT Total # of Minutes Spent Total Time Spent with Patient: Total time spent is greater than 50% in coordination of care (as documented) at patient's floor/unit and/or counseling patient: Coding Level of Care Code 92555 Post Operative Follow-Up Diagnoses Abscess of right breast N61.1
--- NOTE | 2025-01-19 10:23 | Pharmacy Report ---
Pharmacy PK ABX Note - Date of Service January 19, 2025 - Assessment and Plan Assessment 19 year old F receiving vancomycin and ertapenem for treatment of right breast abscess. POD#1 incision and drainage of R breast abscess. Blood cultures and breast cultures pending, renal function stable. Failed outpatient Bactrim. Day # 2 of antimicrobial therapy. Plan Vancomycin * Current regimen: 1000 mg IV every 8 hours * Trough level obtained 01/19/25 resulted as 7.4 mcg/mL. This is NOT predicted to achieve target AUC/CEASAR of 400-600 mg/L.hr * Increase dose to 1250mg IV Q8H. * Will repeat level in the next 48-72 hours if therapy is continued and/or change in patient clinical status Ertapenem 1000mg IV Q24H Pharmacy will continue to follow and will adjust dose/frequency as necessary. Thank you. Pharmacy has transitioned to AUC monitoring for vancomycin. AUC/CEASAR is the preferred PK/PD target and is associated with decreased risk of nephrotoxicity compared to traditional trough targets.
[2025-01-19] MEDS: VANCOMYCIN LEVEL ONE (10:36)
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
[2025-01-19] MEDS: VANCOMYCIN HCL 1,250 MG in SODIUM CHLORIDE 0.9% 250 ML IV SCH (14:08)
[2025-01-19] MEDS: CALCIUM CARBONATE 500 MG CHEWABLE TAB PO PRN (14:19)
[2025-01-19] MEDS: POLYETHYLENE (MIRALAX) 17 GM PACK PO SCH (14:19)
[2025-01-20] MEDS: ONDANSETRON INJ 2 MG/ML 2 ML VIAL IV PRN (06:08)
[2025-01-20 07:16] LABS: Basophils # (auto) 0.05 K/uL (0.00-0.20); Basophils % (auto) 0.4 %; Eosinophils # (auto) 0.03 K/uL (0.00-0.50); Eosinophils % (auto) 0.2 %; Hemoglobin 10.7 g/dl (12.0-16.0); Immature Granulocytes # (auto) 0.08 K/uL (0.01-0.20); Immature Granulocytes % (auto) 0.6 %; Mean Corpuscular Hemoglobin 29.2 pg (25.0-34.0); Mean Corpuscular Hgb Conc 33.4 g/dL (32.0-36.0); Mean Corpuscular Volume 87.4 fL (80.0-100.0); Monocytes # (auto) 0.75 K/uL (0.11-0.59); Monocytes % (auto) 5.5 %; Neutrophils # (auto) 8.67 K/uL (1.40-6.50); Neutrophils % (auto) 63.3 %; Platelet Count 322 K/uL (130-400); RDW Coefficient of Variation 11.6 % (11.5-14.5); RDW Standard Deviation 37.3 fL (36.4-46.3); Red Blood Count 3.66 M/uL (4.20-5.40); White Blood Count 13.68 K/ul (4.8-10.8)
[2025-01-20 07:43] LABS: BUN Creatinine Ratio 14.8 (10-20); Calcium 8.5 mg/dl (8.6-10.3); Creatinine Clr Calc Pharmacy 131.3 ml/min; Potassium 3.7 mmol/L (3.5-5.1)
[2025-01-20] MEDS: LORazepam 2 MG/1 ML VIAL IV STA (09:00)
--- NOTE | 2025-01-20 09:56 | Surgery Progress Note ---
Date of Service January 20, 2025 Assessment & Plan (1) Abscess of right breast: Plan: POD#2 incision and drainage of R breast abscess WBC 13.6. vitals stable, she is afebrile Surgical packing/dressing removed. Attempted to change dressing without ativan, but pt believed during the process she wouldn't be able to do it without. we agreed since it was her post op packing that was place and packed tight for this 1st change. Current dressing changes are-->(irrigate wound with normal saline to help remove packing, then irrigate wound to clean, and re-pack with 1" nu-gauze, and cover with dry 4x4 gauze/abd/medipore tape) daily Wound erythema is diminishing but remains present Culture growing strep constellatus, continue on IV abx for now Patient will need case management on board for disposition planning and logistics of dressing changes, may need home health if unable to perform dressing changes herself or have help from family/friends as above. cont iv antibiotics/wound care. Admission and Anticipated Discharge Date Admission Date: January 18, 2025 Subjective Patient feeling okay. Has some pain in R breast that is tolerable. Very anxious about her dressing change, requested ativan. Unsure about how she is going to handle the wound at home or where she is going to stay upon discharge. Physical Exam Physical Exam: awake/alert Respiratory: normal respiratory effort Chest (Breasts): Additional Comments: R breast with wound erythema, slightly decreased, some mild induration, wound packing removed, no drainage in wound bed Results & Data Vital Signs (Past 12 Hours) Vital Signs Temp Pulse Resp BP Pulse Ox O2 Del Method 01/20/25 07:10 97.5 F L 73 17 104/64 98 Room Air PG Care Time/CCT Total # of Minutes Spent Total Time Spent with Patient: Total time spent is greater than 50% in coordination of care (as documented) at patient's floor/unit and/or counseling patient: Coding Level of Care Code 16849 Post Operative Follow-Up Diagnoses Abscess of right breast N61.1
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
[2025-01-21 06:42] LABS: Basophils # (auto) 0.07 K/uL (0.00-0.20); Basophils % (auto) 0.5 %; Eosinophils # (auto) 0.06 K/uL (0.00-0.50); Eosinophils % (auto) 0.5 %; Hematocrit (blood only) 38.3 % (37.0-47.0); Hemoglobin 12.8 g/dl (12.0-16.0); Immature Granulocytes # (auto) 0.09 K/uL (0.01-0.20); Immature Granulocytes % (auto) 0.7 %; Lymphocytes # (auto) 4.79 K/uL (1.20-3.40); Lymphocytes % (auto) 36.9 %; Mean Corpuscular Hemoglobin 29.1 pg (25.0-34.0); Mean Corpuscular Hgb Conc 33.4 g/dL (32.0-36.0); Mean Platelet Volume 8.7 fL (9.4-12.4); Monocytes # (auto) 0.96 K/uL (0.11-0.59); Monocytes % (auto) 7.4 %; Platelet Count 402 K/uL (130-400); RDW Coefficient of Variation 11.4 % (11.5-14.5); White Blood Count 12.97 K/ul (4.8-10.8)
[2025-01-21 07:34] LABS: Calcium 8.9 mg/dl (8.6-10.3); Potassium 4.1 mmol/L (3.5-5.1)
[2025-01-21 07:39] LABS: BUN Creatinine Ratio 11.4 (10-20); Creatinine Clr Calc Pharmacy 114.4 ml/min
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
[2025-01-21] MEDS: oxyCODONE HCL IR 5 MG TAB (IMMEDIATE RELEASE) PO PRN (12:34)
[2025-01-21] MEDS: DOCUSATE SODIUM/SENNA 50/8.6MG TAB PO SCH (13:08)
--- NOTE | 2025-01-21 14:42 | Surgery Progress Note ---
Date of Service January 21, 2025 Assessment & Plan (1) Abscess of right breast: Plan: POD 3 I +D right breast abscess Dressing taken down, erythema improving from yesterday WBC down trending 12 (13), VSS afebrile seen by ID , follow their abx recommendations on D/C continue daily dressing changes (irrigate wound with normal saline to help remove packing, then irrigate wound to clean, and re-pack with 1" nu-gauze, and cover with dry 4x4 gauze/abd/medipore tape) Pt can f/u op with Dr Andrea in 1-2 weeks General surgery will follow from peripheral call with questions/concerns seen and examined with Dr Real Admission and Anticipated Discharge Date Admission Date: January 18, 2025 Subjective Pt reports feeling well R breast less painful than yesterday Review of Systems Constitutional: no fever and no chills Integumentary: + wounds Physical Exam Constitutional: cooperative and comfortable; no acute distress Respiratory: normal respiratory effort; no respiratory distress Cardiovascular: Rate/Rhythm: regular rate Chest (Breasts): Breast: + breast tenderness Additional Comments: R breast post surgical I +D Results & Data Vital Signs (Past 12 Hours) Vital Signs Temp Pulse Resp BP Pulse Ox O2 Del Method 01/21/25 07:44 98.1 F 61 14 100/61 97 Room Air Results CBC w Diff Results: RBC 4.40 M/uL (4.20-5.40) 01/21/25 WBC 12.97 K/ul (4.8-10.8) H 01/21/25 Hgb 12.8 g/dl (12.0-16.0) 01/21/25 Hct 38.3 % (37.0-47.0) 01/21/25 MCV 87.0 fL (80.0-100.0) 01/21/25 MCH 29.1 pg (25.0-34.0) 01/21/25 MCHC 33.4 g/dL (32.0-36.0) 01/21/25 RDW Standard Deviation 37.0 fL (36.4-46.3) 01/21/25 RDW Coefficient of Variation 11.4 % (11.5-14.5) L 01/21/25 Plt Count 402 K/uL (130-400) H 01/21/25 MPV 8.7 fL (9.4-12.4) L 01/21/25 Neutrophils (%) (Auto) 54.0 % 01/21/25 Lymphocytes (%) (Auto) 36.9 % 01/21/25 Monocytes # (Auto) 0.96 K/uL (0.11-0.59) H 01/21/25 Eosinophils # (Auto) 0.06 K/uL (0.00-0.50) 01/21/25 Immature Granulocyte % (Auto) 0.7 % 01/21/25 Neutrophils # (Auto) 7.00 K/uL (1.40-6.50) H 01/21/25 Lymphocytes # (Auto) 4.79 K/uL (1.20-3.40) H 01/21/25 Monocytes # (Auto) 0.96 K/uL (0.11-0.59) H 01/21/25 Eosinophils # (Auto) 0.06 K/uL (0.00-0.50) 01/21/25 Basophils # (Auto) 0.07 K/uL (0.00-0.20) 01/21/25 Immature Granulocyte # (Auto) 0.09 K/uL (0.01-0.20) 5 Echinocytes 1+ 01/19/25 PG Care Time/CCT Total # of Minutes Spent Total Time Spent with Patient: Total time spent is greater than 50% in coordination of care (as documented) at patient's floor/unit and/or counseling patient: Coding Level of Care Code 88282 Post Operative Follow-Up Diagnoses Abscess of right breast N61.1
[2025-01-21] MEDS: ADVANCED PROBIOTIC 625 MG CAPSULE PO SCH (16:28)
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
[2025-01-22 07:14] LABS: Hematocrit (blood only) 36.7 % (37.0-47.0); Hemoglobin 12.5 g/dl (12.0-16.0); Mean Corpuscular Hemoglobin 28.9 pg (25.0-34.0); Mean Corpuscular Hgb Conc 34.1 g/dL (32.0-36.0); Mean Platelet Volume 8.5 fL (9.4-12.4); Platelet Count 416 K/uL (130-400); RDW Coefficient of Variation 11.5 % (11.5-14.5); RDW Standard Deviation 35.5 fL (36.4-46.3); Red Blood Count 4.32 M/uL (4.20-5.40)
[2025-01-22] MEDS: VANCOMYCIN LEVEL ONE (07:15)
[2025-01-22 07:30] VITALS: BP 97/60; PULSE 60; RESP 16; TEMP 97.5; O2SAT 95
[2025-01-22 07:46] LABS: Calcium 8.9 mg/dl (8.6-10.3); Potassium 4.1 mmol/L (3.5-5.1)
[2025-01-22 07:52] LABS: BUN Creatinine Ratio 13.8 (10-20); Creatinine Clr Calc Pharmacy 123.2 ml/min
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
== END 2025-01-22 14:15 | disposition home or self-care (01) | DRG 585 ==
LOC: ED 00:22 → SUATTDRO 05:25 → EDINP 05:25 → 3N 16:56
DX: Z88.0 Allergy status to penicillin; F31.9 Bipolar disorder, unspecified; F17.290 Nicotine dependence, other tobacco product, uncomplicated; F11.10 Opioid abuse, uncomplicated; N61.1 Abscess of the breast and nipple; Z88.1 Allergy status to other antibiotic agents; B95.4 Other streptococcus as the cause of diseases classified elsewhere; F15.10 Other stimulant abuse, uncomplicated; E28.2 Polycystic ovarian syndrome; Z80.41 Family history of malignant neoplasm of ovary